=== PATIENT | male | born 1945 | race Caucasian/White ===

== ENCOUNTER 2016-11-23 09:52 | Emergency (ER) | payer OTHER, MEDICARE ==
--- NOTE | 2016-11-23 09:58 | PDOC ---
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 After work on Tuesday, he began to notice episodes of numbness and tingling in his left arm, which lasted a couple minutes, and resolve spontaneously. These seem to be positional. They followed this C5-6 distribution. There was no weakness associated. Review of systems: Denies chest pain, shortness of breath, nausea, vomiting, diaphoresis, exertional dyspnea, orthopnea, or PND. Denies fever/chills, URI symptoms, sore throat, cough, abdominal pain, diarrhea, constipation, hematemesis, melena, bloody stool. He admits pain and stiffness in his neck with rotation to the right and extension. These maneuvers sometimes cause his radicular symptoms Past medical history: No history of cervical spine disease or injury. No history of coronary artery disease, angina, OH, TIA, CVA. Mild hypertension in the past, on no medication at present. BPH. 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 Occasional social alcohol, none recently. with stable home and family. No stress or anxiety Family history: Reviewed and noncontributory including early coronary artery disease, neurologic disease, diabetes or other metabolic diseases, or cancer Physical exam: Alert, oriented 3, well-developed well-nourished, no acute distress, cheerful and cooperative Afebrile, vital signs normal except for mild bradycardia of 58 bpm, which has been noted in the past, and mild elevation of blood pressure in the 150/90 range. Head atraumatic. PERRLA 4 mm, fundi benign with sharp disc margins and good central venous pulsations. No A-V nicking, arteriolar narrowing, or hemorrhages/ exudates. ENT clear Neck supple without bruit mass or nodes Chest clear CV regular without murmur rub or gallop pulses full and symmetric no JVD or edema heart rate 58 and regular Abdomen benign Neurological C2 to 12 intact. No focal sensory or motor deficits. The patient describes numbness and paresthesias, episodic as described above, but there is no decreased sensation on exam. Strength is full and symmetric. Babinski's downgoing bilaterally. DTRs 3+ symmetric Skin clear, no rash, adequate turgor and wet mucous membranes Extremities no CCE. Good capillary refill in the affected hand. As implied above , strength is full and symmetric in the left upper extremity, and including flexion and extension of the elbow, intrinsic muscles of the hand, opposition of the thumb. 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 Primarily sensory symptoms, no objective deficits. No suggestion of coronary artery disease or cardiac ischemia, though with bradycardia cardiac evaluation will be undertaken Plan: EKG and enzymes, CBC and chemistries, rest and symptomatic treatment. Follow-up orthopedist if cardiac evaluation negative. Past History - Past Medical History Allergies/Adverse Reactions: Allergies Allergy/AdvReac Type Severity Reaction Status Date / Time No Known Allergies Allergy Verified 11/23/16 09:53 Home Medications: Ambulatory Orders Ibuprofen 800 mg PO TID #15 tablet 11/23/16 HTN: Yes - Immunization History Immunization Up to Date: Yes - Suicide/Smoking/Psychosocial Hx Smoking History: Never smoked Hx Alcohol Use: Yes ED Treatment Course - LABORATORY CBC & Chemistry Diagram: 11/23/16 10:10 11/23/16 10:10 Medical Decision Making - Medical Decision Making 11/23/16 10:29 EKG reviewed: Sinus bradycardia 57/m. Borderline first-degree AV block. Left axis deviation. No ST-T wave changes. No change compared to prior EKG dated 07/2013. 11/23/16 11:32 CBC and chemistries without significant abnormalities, except for elevated CPK in the 1100 range. Troponin is negative and index is 0.4. The CPK is unlikely coming from heart muscle. Will repeat. Uncertain etiology of the elevated CPK, though the patient was working yesterday all day doing physical labor Repeat CPK is still elevated. Patient advised to rest, avoid exertional activities, follow-up with primary physician and repeat laboratory work. Further instructed to increase his fluid intake, return to ER if there are any further symptoms including chest pain, shortness of breath, nausea, perspiring, lightheadedness or dizziness. Fully ambulatory and in no pain or other distress upon discharge with his to follow-up as directed 11/23/16 11:44 11/24/16 08:03 *DC/Admit/Observation/Transfer Diagnosis at time of Disposition: Cervical radiculopathy - Discharge Dispostion Disposition: HOME Condition at time of disposition: Stable Admit: No - Prescriptions Prescriptions: Ibuprofen 800 mg PO TID #15 tablet - Referrals Referrals: Edgardo Rangel MD [Staff Physician] - 3 days - Patient Instructions Printed Discharge Instructions: DI for Cervical Radiculopathy Additional Instructions: Rest of the upper body. Avoid excessive movement of the neck. Wear cervical collar as directed. Medication as prescribed. See histology specialist if symptoms persist. - Post Discharge Activity Forms/Work/School Notes: Back to Work
[2016-11-23 09:59] VITALS: BP 156/96; PULSE 65; TEMP 98.1; BMI 30.7
[2016-11-23 10:21] LABS: MCH 31.4 pg (25.7-33.7); MCHC 33.2 g/dl (32.0-35.9); MEAN CELL VOLUME 94.6 fl (80-96); MEAN PLT VOLUME 9.6 fl (7.5-11.1); PLATELET COUNT 159 K/MM3 (134-434); RDW 13.9 % (11.9-15.9)
[2016-11-23 10:42] LABS: ALBUMIN 4.1 g/dl (3.5-5.0); ALK PHOS 76 U/L (32-92); ANION GAP 5 (8-16); BILIRUBIN,TOTAL 1.4 mg/dl (0.2-1.0); CALCIUM 9.4 mg/dl (8.4-10.2); CO2 26 mmol/L (22-28); CREATININE 1.2 mg/dl (0.6-1.3); GLUCOSE,RANDOM 108 mg/dl (74-106); SGOT/AST 36 U/L (10-42); SGPT/ALT 36 U/L (10-40); TOT PROT 7.1 g/dl (6.4-8.3)
[2016-11-23 10:53] LABS: CPK 1175 IU/L (39-308)
[2016-11-23 11:05] LABS: TROPONIN I (DFP) < 0.03 ng/ml (0.03-0.50)
--- NOTE | 2016-11-25 17:29 | EKG ---
Test Reason : Blood Pressure : / mmHG Vent. Rate : 057 BPM Atrial Rate : 057 BPM P-R Int : 202 ms QRS Dur : 092 ms QT Int : 440 ms P-R-T Axes : 055 -43 019 degrees QTc Int : 428 ms SINUS BRADYCARDIA POSSIBLE LEFT ATRIAL ENLARGEMENT LEFT AXIS DEVIATION WHEN COMPARED WITH ECG OF 12-APR-2013 04:07, NO SIGNIFICANT CHANGE WAS FOUND Confirmed by MD GUIDO MARJORY ([id number]) on 11/25/2016 5:29:19 PM Referred By: PB MONTOYA Confirmed By:MADHAVI GUIDO MD
== END 2016-11-23 13:20 | disposition home or self-care (01) ==
LOC: FER 09:52
DX: M54.12 Radiculopathy, cervical region (principal)
CPT/HCPCS: 36415; 80053; 82550; 82553; 84484; 85025; 93005; 99284-25

== ENCOUNTER 2018-10-21 06:03 | Emergency (ER) | payer OTHER, MEDICARE ==
[2018-10-21] MEDS ORDERED: DEXAMETHASONE LIQUID 0.5 MG/5 ML PO ONE (06:25)
[2018-10-21] MEDS ORDERED: diphenhydrAMINE HCL 25 MG CAPSULE (FP) PO ONE ×2 (06:25→06:27)
[2018-10-21] MEDS ORDERED: RANITIDINE HCL 150 MG TABLET (FP) PO ONE (06:26)
[2018-10-21] MEDS ORDERED: DEXAMETHASONE SOD PHOSPHATE 10 MG/1 ML VIAL ONE (06:28)
[2018-10-21 06:35] VITALS: BMI 60.3
--- NOTE | 2018-10-21 06:36 | PDOC ---
History of Present Illness - General Chief Complaint: Allergic Reaction Stated Complaint: ALLERGIC REACTION Time Seen by Provider: 10/21/18 06:26 History Source: Patient - History of Present Illness Initial Comments: 10/21/18 06:49 Pt ate an apple, for the first time in 2 years. He used to have allergies to apples. Apparently he still does. No SOB and no wheezing Timing/Duration: 4-6 hours Severity: moderate Aspirin Received prior to arrival: Yes: unknown Asa Contraindications(Core Measure): Yes: Other Past History - Travel Traveled outside of the country in the last 30 days: No Close contact w/someone who was outside of country & ill: No - Past Medical History Allergies/Adverse Reactions: Allergies Allergy/AdvReac Type Severity Reaction Status Date / Time No Known Allergies Allergy Verified 10/21/18 06:17 Home Medications: Ambulatory Orders Celecoxib [Celebrex] 200 mg PO DAILY 10/21/18 Diphenhydramine HCl [Benadryl -] 25 mg PO Q6H #28 capsule 10/21/18 Ibuprofen 800 mg PO DAILY 10/21/18 Ranitidine [Zantac -] 300 mg PO DAILY 15 Days #30 tablet 10/21/18 Tamsulosin HCl 0.4 mg PO DAILY 10/21/18 predniSONE [Deltasone -] 40 mg PO DAILY 4 Days #8 tablet 10/21/18 COPD: No HTN: Yes - Immunization History Immunization Up to Date: Yes - Suicide/Smoking/Psychosocial Hx Smoking History: Never smoked Have you smoked in the past 12 months: No Information on smoking cessation initiated: No Hx Alcohol Use: No Drug/Substance Use Hx: No Substance Use Type: None *Physical Exam - Vital Signs Last Vital Signs Temp Pulse Resp BP Pulse Ox 97.9 F 74 20 147/83 100 10/21/18 06:14 10/21/18 06:14 10/21/18 06:14 10/21/18 06:14 10/21/18 06:14 - Physical Exam General Appearance: Yes: Nourished, Appropriately Dressed. No: Apparent Distress HEENT: positive: EOMI, ANDREAS, Normal ENT Inspection, Normal Voice, Symmetrical, TMs Normal, Pharynx Normal Neck: positive: Tender, Trachea midline, Normal Thyroid, Rigid, Supple Respiratory/Chest: positive: Chest Tender, Lungs Clear, Normal Breath Sounds, Respiratory Distress Cardiovascular: positive: Regular Rhythm, Regular Rate, S1, S2 Gastrointestinal/Abdominal: positive: Normal Bowel Sounds, Tender, Flat, Soft, Organomegaly, Pulsatile Mass Musculoskeletal: positive: Normal Inspection, CVA Tenderness, CVA Tenderness (R) . 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 They will follow him 10/21/18 07:02 No wheezing and no tongue swelling. *DC/Admit/Observation/Transfer Diagnosis at time of Disposition: Allergic reaction - Discharge Dispostion Disposition: HOME Condition at time of disposition: Stable - Prescriptions Prescriptions: Diphenhydramine HCl [Benadryl -] 25 mg PO Q6H #28 capsule predniSONE [Deltasone -] 40 mg PO DAILY 4 Days #8 tablet Ranitidine [Zantac -] 300 mg PO DAILY 15 Days #30 tablet - Referrals Referrals: Angélica Kitchen MD [Primary Care Provider] - Romeo Ortiz MD [Staff Physician] - - Patient Instructions Printed Discharge Instructions: DI for General Allergic Reactions Additional Instructions: Follow up with your primary doctor within 1 week for further evaluation. A referral has been included for an allergy doctor (Dr. Ortiz). Call for an appointment within 1-2 weeks. Take the prescribed medications to prevent further allergy symptoms. Do not drive or operate machinery if you are taking benadryl as it can make you sleepy or dizzy. Return to the emergency department if you have any new, worsening, or concerning symptoms - Post Discharge Activity
[2018-10-21 08:22] VITALS: BP 138/86; PULSE 60; TEMP 98
--- NOTE | 2018-10-21 09:07 | PDOC ---
*Physical Exam - Vital Signs Last Vital Signs Temp Pulse Resp BP Pulse Ox 98 F 60 18 138/86 100 10/21/18 08:22 10/21/18 08:22 10/21/18 08:22 10/21/18 08:22 10/21/18 08:22 ED Treatment Course - Medications Given in the ED: ED Medications Discontinued Medications Generic Name Dose Route Start Last Admin Trade Name Aurelio PRN Reason Stop Dose Admin Dexamethasone 10 mg 10/21/18 06:25 10/21/18 06:35 Decadron Liquid - PO 10/21/18 06:26 10 mg ONCE ONE Administration Diphenhydramine HCl 50 mg 10/21/18 06:25 10/21/18 06:35 Benadryl - PO 10/21/18 06:26 50 mg ONCE ONE Administration Ranitidine HCl 300 mg 10/21/18 06:26 10/21/18 06:36 Zantac - PO 10/21/18 06:27 300 mg ONCE ONE Administration Medical Decision Making - Medical Decision Making 10/21/18 09:01 Care received at 0800 Pt presented to the ED for allergic reaction after eating an apple. REports tickle in throat, denies rash, vomiting, sob, throat closing, cp, dizziness Pt received steroids, benadryl, and ranitidine Pt observed for 3 hours with resolution of sxs Pt clinically stable for DC home with course of prednisone I discussed the physical exam findings, ancillary test results and final diagnoses with the patient. I answered all of the patient's questions. The patient was satisfied with the care received and felt comfortable with the discharge plan and treatment plan. The patient will call their primary care physician within 24 hours to arrange follow-up and will return to the Emergency Department with any new, persistent or worsening symptoms. *DC/Admit/Observation/Transfer Diagnosis at time of Disposition: Allergic reaction - Discharge Dispostion Disposition: HOME Condition at time of disposition: Stable Decision to Admit order: No - Prescriptions Prescriptions: Diphenhydramine HCl [Benadryl -] 25 mg PO Q6H #28 capsule predniSONE [Deltasone -] 40 mg PO DAILY 4 Days #8 tablet Ranitidine [Zantac -] 300 mg PO DAILY 15 Days #30 tablet - Referrals Referrals: Angélica Kitchen MD [Primary Care Provider] - Romeo Ortiz MD [Staff Physician] - - Patient Instructions Printed Discharge Instructions: DI for General Allergic Reactions Additional Instructions: Follow up with your primary doctor within 1 week for further evaluation. A referral has been included for an allergy doctor (Dr. Ortiz). Call for an appointment within 1-2 weeks. Take the prescribed medications to prevent further allergy symptoms. Do not drive or operate machinery if you are taking benadryl as it can make you sleepy or dizzy. Return to the emergency department if you have any new, worsening, or concerning symptoms - Post Discharge Activity - Attestations Physician Attestion: 10/21/18 09:09 I, Dr. Eunice Blackwood MD, attest that this document has been prepared under my direction and personally reviewed by me in its entirety. I further attest, that it accurately reflects all work, treatment, procedures and medical decision -making performed by me.
== END 2018-10-21 09:21 | disposition home or self-care (01) ==
LOC: JER 06:03
DX: T78.1XXA Other adverse food reactions, not elsewhere classified, initial encounter (principal); L29.8 Other pruritus; X58.XXXA Exposure to other specified factors, initial encounter; Z91.018 Allergy to other foods
CPT/HCPCS: 99283-25

== ENCOUNTER 2020-02-13 06:02 | Day surgery (SDC) | payer OTHER, MEDICARE ==
[2020-02-05 16:56] VITALS: BMI 33.5
[2020-02-13] MEDS ORDERED: LOCK ITEM NR ONE (06:41)
[2020-02-13] MEDS ORDERED: CELECOXIB 200 MG CAPSULE PO ONE (06:44)
[2020-02-13] MEDS ORDERED: CEFAZOLIN 2 GM in DEXTROSE 5%-WATER - 50 ML IVPB ONE ×2 (06:44→07:12)
[2020-02-13] MEDS ORDERED: TRANEXAMIC ACID 1000 MG/10 ML VIAL IVPUSH ONE ×3 (06:44)
[2020-02-13] MEDS ORDERED: VANCOMYCIN 1,000 MG in DEXTROSE 5%-WATER - 250 ML IVPB ONE (06:44)
[2020-02-13] MEDS ORDERED: DEXAMETHASONE SOD PHOSPHATE/PF 10 MG/ML SDV ONE (06:46)
[2020-02-13 06:47] VITALS: BP 130/86; PULSE 80; TEMP 98.5
[2020-02-13] MEDS ORDERED: MIDAZOLAM HCL 2 MG/2 ML SINGLE DOSE VIAL ONE (06:47)
[2020-02-13] MEDS ORDERED: BUPIVACAINE HCL/PF 0.5% (5 MG/ML) 30 ML VIAL IJ ONE (06:47)
[2020-02-13] MEDS ORDERED: CELECOXIB 200 MG CAPSULE ONE (07:02)
[2020-02-13] MEDS ORDERED: fentaNYL CITRATE 250 MCG/5 ML VIAL ONE (07:13)
[2020-02-13] MEDS ORDERED: PROPOFOL 20 ML ONE ×4 (07:13)
[2020-02-13] MEDS ORDERED: TRANEXAMIC ACID 1000 MG/10 ML VIAL ONE (07:15)
[2020-02-13] MEDS ORDERED: ONDANSETRON 4 MG/2 ML VIAL ONE (07:15)
== END 2020-02-13 10:50 | disposition home or self-care (01) ==
LOC: UNDOADMIN 06:02 → FM/S 06:02 → FASUSAT 06:02 → EDSTATUS 08:00 → UNDODISIN 10:50 → FASUSAT 10:50
PROVIDERS: ATTEND Orthopaedic Surgery Orthopaedic Surgery of the Spine
PROC: 0SRB0JZ Replacement of Left Hip Joint with Synthetic Substitute, Open Approach (ICD-10-PCS; principal; 2020-02-13)
DX: Z53.8 Procedure and treatment not carried out for other reasons (principal); T84.03 Mechanical loosening of internal prosthetic joint; Y79.2 Prosthetic and other implants, materials and accessory orthopedic devices associated with adverse incidents
CPT/HCPCS: 73552-TC-LT-FY; 86850; 86900; 86901

== ENCOUNTER 2020-02-27 05:49 | Inpatient (IN) | payer OTHER, MEDICARE ==
[2020-02-22 16:41] VITALS: BMI 33.5
[2020-02-27] MEDS ORDERED: LOCK ITEM NR ONE (06:34)
[2020-02-27] MEDS ORDERED: BUPIVACAINE HCL/PF 0.5% (5 MG/ML) 30 ML VIAL IJ ONE (06:47)
[2020-02-27] MEDS ORDERED: MIDAZOLAM HCL 2 MG/2 ML SINGLE DOSE VIAL ONE ×3 (06:47→10:43)
[2020-02-27] MEDS ORDERED: EPINEPHrine/PF 1 MG/1 ML (1:1,000) AMPULE ONE (07:00)
[2020-02-27] MEDS ORDERED: EPHEDRINE SULFATE/0.9% NACL/PF 50 MG/10 ML SYRINGE NR ONE (08:05)
[2020-02-27] MEDS ORDERED: HEPARIN NA (PORCINE) 5,000 UNITS/ML 1ML VIAL ONE (08:36)
[2020-02-27] MEDS ORDERED: DEXAMETHASONE SOD PHOSPHATE 4 MG/1 ML VIAL ONE (08:44)
[2020-02-27] MEDS ORDERED: VANCOMYCIN 1,000 MG VIAL (RESTRICTED TO ID ONLY) ONE (08:44)
[2020-02-27] MEDS ORDERED: ONDANSETRON 4 MG/2 ML VIAL ONE (08:44)
[2020-02-27] MEDS ORDERED: ceFAZolin SODIUM 1 GM VIAL ONE ×3 (08:44→11:18)
[2020-02-27] MEDS ORDERED: PROPOFOL 20 ML ONE ×7 (08:48→11:47)
[2020-02-27] MEDS ORDERED: SEVOFLURANE 250 ML BTL ONE (11:14)
[2020-02-27] MEDS ORDERED: BENZOIN/ALOE VERA/STORAX/TOLU 58 ML BOTTLE ONE (12:22)
[2020-02-27] MEDS ORDERED: LACTATED RINGERS SOLUTION 1,000 ML IV SCH (13:15)
[2020-02-27] MEDS ORDERED: MAG HYDROX/AL HYDROX/SIMETH 30 ML UNIT-DOSE CUP PO PRN (13:15)
[2020-02-27] MEDS ORDERED: MAGNESIUM HYDROX 2400MG/30ML ORAL SUSPENSION 30 ML CUP PO PRN (13:15)
[2020-02-27] MEDS ORDERED: ONDANSETRON 4 MG/2 ML VIAL IVPUSH PRN ×2 (13:15→13:18)
[2020-02-27] MEDS ORDERED: PROMETHAZINE HCL 25 MG/1 ML VIAL IVPUSH PRN (13:18)
[2020-02-27] MEDS ORDERED: oxyCODONE HCL 5 MG TABLET ONE (14:08)
[2020-02-27] MEDS ORDERED: ACETAMINOPHEN 325 MG TABLET (FP) ONE (14:09)
[2020-02-27] MEDS: oxyCODONE HCL 5 MG TABLET PO PRN ×2 (14:25→18:26)
[2020-02-27] MEDS: ACETAMINOPHEN 325 MG TABLET (FP) PO SCH ×2 (14:25→19:06)
[2020-02-27] MEDS: CEFAZOLIN 2 GM/D5W 2 GM/50 ML ML IVPB SCH (18:27)
[2020-02-27] MEDS: SENNOSIDES/DOCUSATE COMBO (SENNA PLUS) TABLET (UD) PO SCH (21:06)
[2020-02-27] MEDS: ASPIRIN 81 MG CHEWABLE TABLETS PO SCH (21:06)
[2020-02-28] MEDS: CEFAZOLIN 2 GM/D5W 2 GM/50 ML ML IVPB SCH ×2 (00:20→05:21)
[2020-02-28] MEDS: ACETAMINOPHEN 325 MG TABLET (FP) PO SCH ×4 (01:20→19:23)
[2020-02-28] MEDS: oxyCODONE HCL 5 MG TABLET PO PRN ×4 (06:00→17:05)
[2020-02-28 08:25] LABS: HEMATOCRIT 37.7 % (35.4-49); HEMOGLOBIN 12.3 GM/dl (11.7-16.9); MCH 31.1 pg (25.7-33.7); MCHC 32.5 g/dl (32.0-35.9); MEAN CELL VOLUME 95.7 fl (80-96); MEAN PLT VOLUME 9.7 fl (7.5-11.1); PLATELET COUNT 116 K/MM3 (134-434); RBC 3.94 M/mm3 (4.00-5.60); WHITE BLOOD COUNT 13.2 K/mm3 (4.0-10.8)
[2020-02-28 08:28] LABS: CALCIUM 8.4 mg/dl (8.5-10); CREATININE 1.1 mg/dl (0.55-1.3); POTASSIUM 4.4 mmol/L (3.5-5.1)
[2020-02-28] MEDS: ASPIRIN 81 MG CHEWABLE TABLETS PO SCH ×2 (09:16→21:22)
[2020-02-28] MEDS: TAMSULOSIN HCL 0.4 MG CAP PO SCH (09:16)
[2020-02-28] MEDS: CELECOXIB 200 MG CAPSULE PO SCH (09:16)
[2020-02-28] MEDS: PANTOPRAZOLE 40 MG TABLET PO SCH (09:17)
[2020-02-28] MEDS: LOSARTAN POTASSIUM 25 MG TABLET PO SCH (09:17)
[2020-02-28] MEDS: SENNOSIDES/DOCUSATE COMBO (SENNA PLUS) TABLET (UD) PO SCH ×2 (09:17→21:23)
[2020-02-28] MEDS: ROSUVASTATIN CA 20 MG TABLET (FP) PO SCH (21:23)
[2020-02-29] MEDS: ACETAMINOPHEN 325 MG TABLET (FP) PO SCH ×4 (02:00→21:23)
[2020-02-29 08:16] LABS: HEMATOCRIT 35.5 % (35.4-49); HEMOGLOBIN 11.5 GM/dl (11.7-16.9); MCHC 32.5 g/dl (32.0-35.9); MEAN CELL VOLUME 95.6 fl (80-96); MEAN PLT VOLUME 9.9 fl (7.5-11.1); PLATELET COUNT 106 K/MM3 (134-434); RBC 3.71 M/mm3 (4.00-5.60); RDW 13.7 % (11.9-15.9); WHITE BLOOD COUNT 9.3 K/mm3 (4.0-10.8)
[2020-02-29] MEDS: TAMSULOSIN HCL 0.4 MG CAP PO SCH (09:48)
[2020-02-29] MEDS: oxyCODONE HCL 5 MG TABLET PO PRN (09:48)
[2020-02-29] MEDS: ASPIRIN 81 MG CHEWABLE TABLETS PO SCH ×2 (09:48→21:23)
[2020-02-29] MEDS: CELECOXIB 200 MG CAPSULE PO SCH (09:48)
[2020-02-29] MEDS: PANTOPRAZOLE 40 MG TABLET PO SCH (09:48)
[2020-02-29] MEDS: LOSARTAN POTASSIUM 25 MG TABLET PO SCH (10:25)
[2020-02-29] MEDS: SENNOSIDES/DOCUSATE COMBO (SENNA PLUS) TABLET (UD) PO SCH ×2 (10:30→21:23)
[2020-02-29] MEDS: ROSUVASTATIN CA 20 MG TABLET (FP) PO SCH (21:23)
[2020-03-01] MEDS: ACETAMINOPHEN 325 MG TABLET (FP) PO SCH ×2 (07:41→08:32)
[2020-03-01 08:30] LABS: HEMOGLOBIN 10.6 GM/dl (11.7-16.9); MCH 31.8 pg (25.7-33.7); MCHC 33.2 g/dl (32.0-35.9); MEAN CELL VOLUME 95.5 fl (80-96); MEAN PLT VOLUME 9.7 fl (7.5-11.1); PLATELET COUNT 106 K/MM3 (134-434); RBC 3.35 M/mm3 (4.00-5.60); RDW 13.6 % (11.9-15.9); WHITE BLOOD COUNT 9.1 K/mm3 (4.0-10.8)
[2020-03-01] MEDS: TAMSULOSIN HCL 0.4 MG CAP PO SCH (09:51)
[2020-03-01] MEDS: LOSARTAN POTASSIUM 25 MG TABLET PO SCH ×2 (09:51→09:58)
[2020-03-01] MEDS: SENNOSIDES/DOCUSATE COMBO (SENNA PLUS) TABLET (UD) PO SCH (09:51)
[2020-03-01] MEDS: CELECOXIB 200 MG CAPSULE PO SCH (09:51)
[2020-03-01 09:57] VITALS: BP 93/55; PULSE 90; TEMP 97.9
[2020-03-01] MEDS: PANTOPRAZOLE 40 MG TABLET PO SCH (10:03)
[2020-03-01] MEDS: ASPIRIN 81 MG CHEWABLE TABLETS PO SCH (10:03)
== END 2020-03-01 13:37 | disposition home or self-care (01) | DRG 468 ==
LOC: FM/S 05:49
PROVIDERS: ADMIT Orthopaedic Surgery Orthopaedic Surgery of the Spine; ATTEND Orthopaedic Surgery Orthopaedic Surgery of the Spine
PROC: 0SPB0JZ Removal of Synthetic Substitute from Left Hip Joint, Open Approach (ICD-10-PCS; 2020-02-27)
PROC: 0SPB09Z Removal of Liner from Left Hip Joint, Open Approach (ICD-10-PCS; 2020-02-27)
PROC: 0SNB0ZZ Release Left Hip Joint, Open Approach (ICD-10-PCS; 2020-02-27)
PROC: 0SUB09Z Supplement Left Hip Joint with Liner, Open Approach (ICD-10-PCS; 2020-02-27)
PROC: 0QB50ZZ Excision of Left Acetabulum, Open Approach (ICD-10-PCS; 2020-02-27)
PROC: 0SRB0JZ Replacement of Left Hip Joint with Synthetic Substitute, Open Approach (ICD-10-PCS; principal; 2020-02-27 08:52)
DX: T84.031A Mechanical loosening of internal left hip prosthetic joint, initial encounter (principal); M89.552 Osteolysis, left thigh; I10 Essential (primary) hypertension; E78.5 Hyperlipidemia, unspecified; F32.9 Major depressive disorder, single episode, unspecified; N40.0 Benign prostatic hyperplasia without lower urinary tract symptoms; Y83.8 Other surgical procedures as the cause of abnormal reaction of the patient, or of later complication, without mention of misadventure at the time of the procedure
CPT/HCPCS: 36415; 73502-TC-LT-FY; 80048; 85027; 94760; 97010-GP; 97116-GP; 97163-GP; J1644

== ENCOUNTER 2020-04-14 16:58 | Emergency (ER) | payer OTHER, MEDICARE ==
[2020-04-14 17:07] VITALS: BP 146/83; PULSE 84; TEMP 99; BMI 30.7
[2020-04-14] MEDS ORDERED: hydrOXYzine PAMOATE 50 MG CAPSULE (FP) PO ONE (17:50)
[2020-04-14] MEDS ORDERED: hydrOXYzine PAMOATE 25 MG CAPSULE (FP) PO ONE (17:52)
== END 2020-04-14 19:00 | disposition home or self-care (01) ==
LOC: FER 16:58
DX: L29.9 Pruritus, unspecified (principal)
CPT/HCPCS: 99284-25

== ENCOUNTER 2023-09-06 05:08 | Day surgery (SDC) | payer OTHER, MEDICARE ==
[2023-09-05 20:09] VITALS: BMI 32.1
[2023-09-06] MEDS ORDERED: PROPOFOL 40 ML ONE (07:26)
[2023-09-06] MEDS ORDERED: SUCCINYLCHOLINE CHLORIDE 200 MG/10 ML SYRINGE ONE (07:27)
[2023-09-06] MEDS ORDERED: LIDOCAINE HCL/PF 2% SDV 5ML VIAL ONE (07:27)
[2023-09-06] MEDS ORDERED: ALBUTEROL SO4 HFA INHALER IH ONE (07:35)
[2023-09-06] MEDS ORDERED: MIDAZOLAM HCL 2 MG/2 ML SINGLE DOSE VIAL ONE (07:36)
[2023-09-06] MEDS: ceFAZolin SODIUM 1 GM VIAL IVPB ONE (07:43)
[2023-09-06] MEDS ORDERED: DEXAMETHASONE SOD PHOSPHATE 4 MG/1 ML VIAL ONE (07:44)
[2023-09-06] MEDS ORDERED: ONDANSETRON 4 MG/2 ML VIAL ONE (07:44)
[2023-09-06] MEDS ORDERED: oxyCODONE HCL 5 MG TABLET PO PRN (08:30)
[2023-09-06] MEDS ORDERED: DEXTROSE 5%-0.45% SALINE 1,000 ML IV SCH (08:30)
[2023-09-06] MEDS ORDERED: ONDANSETRON 4 MG/2 ML VIAL IVPUSH PRN (08:35)
[2023-09-06] MEDS: ACETAMINOPHEN 1000 MG/100 ML BAG IVPB ONE (08:44)
[2023-09-06 09:10] VITALS: RESP 18
[2023-09-06] MEDS: LACTATED RINGERS SOLUTION 1,000 ML IV SCH (09:36)
[2023-09-06 10:23] VITALS: TEMP 97
[2023-09-06 11:24] VITALS: BP 121/61; PULSE 56
== END 2023-09-06 11:34 | disposition home or self-care (01) ==
LOC: JASU-SURG 05:08
PROVIDERS: ATTEND Urology
PROC: 0VT08ZZ Resection of Prostate, Via Natural or Artificial Opening Endoscopic (ICD-10-PCS; principal; 2023-09-06 07:30)
DX: N40.1 Benign prostatic hyperplasia with lower urinary tract symptoms (principal); R33.8 Other retention of urine
CPT/HCPCS: 88305-TC; 94760; J0131

== ENCOUNTER 2023-09-09 02:19 | Emergency (ER) | payer OTHER, MEDICARE ==
[2023-09-09 02:29] VITALS: BP 128/95; PULSE 60; RESP 18; TEMP 97.5; BMI 32.3
== END 2023-09-09 03:50 | disposition home or self-care (01) ==
LOC: JER 02:19
DX: T83.091A Other mechanical complication of indwelling urethral catheter, initial encounter (principal)
CPT/HCPCS: 99283-25